=== PATIENT | female | born 1980 | race Caucasian/White ===

== ENCOUNTER 2023-05-29 13:16 | Emergency (ER) | payer MEDICAID ==
[~2023-05-29] VITALS: Ht 160 cm; Wt 67.6 kg
[2023-05-29 13:20] VITALS: BP 127/82; PULSE 96; RESP 20; TEMP 98.1; O2SAT 100
[2023-05-29] MEDS ORDERED: ACETAMINOPHEN EXTRA STRENGTH 500 MG TAB PO ONE (14:15)
== END 2023-05-29 14:45 | disposition home or self-care (01) ==
LOC: MED 13:16
DX: R11.2 Nausea with vomiting, unspecified (principal); R51.9 Headache, unspecified; Z79.899 Other long term (current) drug therapy
CPT/HCPCS: 99283